=== PATIENT | female | born 1990 | race Caucasian/White ===

== ENCOUNTER → 2016-04-17 | Day surgery (SDC) | payer OTHER ==
[2016-03-30 09:02] VITALS: Ht 165.1 cm; Wt 116.4 kg
--- NOTE | 2016-04-02 12:24 | PAT Medication Instructions ---
Service Date Apr 02, 2016. Current Home Medication List Dicyclomine Hcl (Bentyl), 20 MG PO BID Furosemide (Lasix), 20 MG PO QAM Ranitidine (Zantac), 150 MG PO BID Venlafaxine Hcl (Effexor Extended Rel), 150 MG PO QAM Medication Instructions For Your Scheduled Surgery - Hold the following medications the morning of surgery: Furosemide (Lasix), 20 MG PO QAM Dicyclomine Hcl (Bentyl), 20 MG PO BID - Take the following medications the morning of surgery with a sip of water: Venlafaxine Hcl (Effexor Extended Rel), 150 MG PO QAM Ranitidine (Zantac), 150 MG PO BID - Take the following medications as scheduled the night before surgery: Ranitidine (Zantac), 150 MG PO BID Dicyclomine Hcl (Bentyl), 20 MG PO BID If you have any questions please call us at [phone] or [phone] ( [place]) or [phone]
[~2016-04-17] VITALS: Ht 165.1 cm; Wt 116.4 kg
[~2016-04-17] MED LIST: ATROPINE SULFATE 0.1 MG/ML 5ML SYR IV PRN; BUPIVACAINE 0.5 % 5 MG/1 ML MPF 30ML VIAL ONE; CEFAZOLIN 2000 MG/60 ML D5W IV SCH; DEXAMETHASONE SOD INJ 4 MG/ML VIAL ONE; DICY20TA35 PO; EpHEDrine SULFATE INJ 50 MG/ML AMP IV PRN; EpINEphrine INJ 1MG/ML AMP 1 MG/ML AMP ONE; FENTANYL CITRATE INJ 50 MCG/1 ML 2 ML VIAL IV PRN; FENTANYL CITRATE INJ 50 MCG/1 ML 2 ML VIAL ONE; FURO-85 PO; HYDR-5688 PO; HYDROmorphone INJ 1 MG/ML SYR IV PRN; KETOROLAC TROMETHAMINE 30 MG/ML VIAL ONE; LACTATED RINGER'S 1000ML 1,000 ML IV SCH; LIDOCAINE HCL 2% 2 ML VIAL (20MG/ML) ONE; MIDAZOLAM HCL 1 MG/ML 2ML VIAL ONE; ONDANSETRON INJ 2 MG/ML 2 ML VIAL IV PRN; ONDANSETRON INJ 2 MG/ML 2 ML VIAL ONE; OXYCODONE/ACETAMINOPHEN 5-325 TAB PO PRN; PROPOFOL IV EMULSION 10 MG/ML 20 ML VIAL IV ONE; ROPIVACAINE 0.5% 5 MG/ML 30 ML VIAL ONE; SODIUM CHLORIDE 0.9% 1000ML 1,000 ML IV SCH; VENL150C56 PO; ZNTT/150 PO
--- NOTE | 2016-04-17 07:13 | History & Physical Bridge - [place] ---
H&P Re-Evaluation Bridge Note: I have examined the patient, reviewed the History & Physical and in the interval since the performance of the History & Physical I have noted the following changes of clinical significance: No changes noted
--- NOTE | 2016-04-17 08:15 | [facility] Post Operative Brief Note ---
Immediate Operative Summary Operative Date Apr 17, 2016. Pre-Operative Diagnosis Left Knee Medial Meniscus Tear Post-Operative Diagnosis same Procedure(s) Performed Left Knee Arthroscopy, Partial Medial Meniscectomy Surgeon Dr. Crystal Olsen Ski Maker Surgeon(s) Bennett Prieto PA-C Estimated Blood Loss 0 Findings BUCKET HANDLE TEAR MEDIAL MENISCUS Specimens none Anesthesia LMA Complication(s) None Disposition Recovery Room / PACU
--- NOTE | 2016-04-17 08:29 | Discharge Instructions-SurgCtr ---
Discharge Instructions Visit Reason for Visit: Left Knee Medial Meniscus Tear Discharge Discharge Diagnosis / Problem: SAME ABOVE Discharge Goals Goal(s): Decrease discomfort, Improve function Medications Stopped Medications Name(s): Pt. was told only to take Effexor & Zantac this a.m.. Activity Recommendations Activity Limitations: per Instructions/Follow-up section Exercise/Sports Limitations: gradually increase as tolerated Weightbearing Status: Left weightbearing (as tolerated) Anesthesia . Post Anesthesia Instructions: If you have had General Anesthesia or IV Sedation: * Do not drive today. * Resume driving when surgeon permits. * Do not make important decisions or sign legal documents today. * Call surgeon for: 1. Temperature elevations greater than 101 degrees F. 2. Uncontrollable pain. 3. Excessive bleeding. 4. Persistent nausea and vomiting. 5. Medication intolerance (nausea, vomiting or rash). * For nausea and vomiting use only clear liquids such as: tea, soda, bouillon until nausea subsides, then gradually increase diet as tolerated. * If you have any concerns or questions, call your surgeon's office. If physician is unavailable and it is an emergency, call 911 or go to the nearest emergency room. . Instructions / Follow-Up Instructions / Follow-Up MEDICATIONS: * Resume previous medications unless instructed otherwise by your surgeon. * Always take pain medication on a full stomach or with food to avoid upset stomach. * Do not drink alcohol or drive while taking narcotics. * Ibuprofen or Tylenol may be taken if narcotic not needed. SPECIAL CARE INSTRUCTIONS: __ None _X_ Keep extremity elevated and iced x 48 hours; apply ice 20-30 minutes 8-10 times/day. May remove at night. __ Crutches __ May discard when able __ Brace/Post-op shoe __ 24 hrs/day __ Remove at night _X_ Dressing __ Maintain until seen in office, may shower with plastic over site _X_ Remove dressings in 24-48 hours and then may shower _X_ Cover incisions with band-aids after showering __ Do not remove steri-strips TAKE 325MG ASPIRIN DAILY UNTIL SEEN IN THE OFFICE IN 10-14 DAYS POST OP Call physician if chills or temperature rises above 102 degrees or pain unrelieved by prescribed pain medications. Office [phone] Diet Recommendations Home Diet: resume previous diet Procedures Procedures Performed: Left Knee Arthroscopy, Partial Medial Meniscectomy Pending Studies Studies pending at discharge: no Medical Emergencies . Who to Call and When: Medical Emergencies: If at any time you feel your situation is an emergency, please call 911 immediately. . Non-Emergent Contact Non-Emergency issues call your: Primary Care Provider . . "Provider Documentation" section prepared by Bennett Prieto.
--- NOTE | 2016-04-17 08:46 | OPERATIVE REPORT ---
DATE OF OPERATION: 04/17/2016 PREOPERATIVE DIAGNOSIS: Displaced bucket handle tear medial meniscus, left knee. POSTOPERATIVE DIAGNOSIS: Same. PROCEDURE: Left knee arthroscopy, partial medial meniscectomy. SURGEON: Dr. Olsen. ATHLETIC TURF WORKER: Bennett Prieto PA-C. ANESTHESIOLOGIST: Dr. Warren. ANESTHESIA: LMA. DRAINS: None. COMPLICATIONS: None. CONDITION: The patient tolerated the procedure well and returned to the recovery room in apparent satisfactory condition. INDICATIONS FOR SURGERY: Josey is a 26-year-old female who has been suffering a displaced bucket handle tear of the medial meniscus left knee. Went over treatment options and elected to go ahead and proceed with surgery. Procedure, expected outcomes and side effects, and risks were all explained in detail. We briefly talked about meniscal repair we felt that would probably it would be a possibility but most likely end up with a partial meniscectomy. PROCEDURE: The patient was taken to the OR at which time she was placed supine on the operating table and put to sleep by the anesthesia department. She had an extremely hypermobile leg. She hyperextended about 5 degrees. She had full range of motion. Wagner test was negative, but it was interesting how much recurvatum she had in the knee itself. The knee then was prepped and draped in usual sterile fashion, arthroscopic examination was begun with anteromedial and anterolateral portals with a tourniquet placed up to 325 mmHg. She had a very large size leg but ligamentous nash it was stable. Immediately we found a displaced bucket handle tear medial meniscus. We reduced it back into position. We then detached it posteriorly and then anteriorly we removed the fragment and a picture of it. We then used a curved torpedo shaver to trim back the remnant of the meniscus. Articular surface had a little scuffing in one area of it. The remaining part of the medial compartment was fine. The ACL, lateral compartment and patellofemoral joint was inspected. We found a lot of synovitis in the anterior aspect of the patellofemoral joint which was shaved out. The articular surfaces looked good. The knee then was copiously irrigated. All cannulas were removed. Portals were closed with 4-0 nylon sutures. 30 mL of ropivacaine, 10 mg of Toradol, and 1 mL of epinephrine was placed in the knee joint. Placed a sterile dressing of Xeroform, 4 x 4, ABD, Sof-Rol, and John bandage and returned back to recovery room in apparent satisfactory condition. Postoperatively, we are going to have her take 1 aspirin a day to prevent DVT and will start immediate range of motion and physical therapy. SURGICAL FINDINGS: Included a displaced bucket handle tear of the medial meniscus. I attest to the content of the Intraoperative Record and any orders documented therein. Any exceptio ns are noted below.
[2016-04-17 09:08] VITALS: TEMP 36.5
--- NOTE | 2016-04-17 09:17 | Anesthesiology Progress Note ---
Anesthesia Post Op Note Date & Time Apr 17, 2016 at 09:16 Vital Signs Pain Intensity: 0 Vital Signs Past 12 Hours Date Time Temp Pulse Resp B/P Pulse Ox O2 Delivery O2 Flow Rate FiO2 04/17/16 08:59 90 18 04/17/16 08:59 89 18 104/49 99 04/17/16 08:56 36.3 90 12 111/55 100 Room Air 04/17/16 08:54 92 5 04/17/16 08:54 91 5 100 04/17/16 08:53 111/55 04/17/16 08:52 92 5 100 04/17/16 08:52 91 5 04/17/16 08:48 103/62 04/17/16 08:47 106 9 100 04/17/16 08:47 104 9 04/17/16 08:43 111/52 04/17/16 08:42 101 17 100 04/17/16 08:42 101 17 04/17/16 08:38 103/52 04/17/16 08:37 107 20 04/17/16 08:37 108 20 100 04/17/16 08:36 117 20 100 04/17/16 08:36 116 20 04/17/16 08:33 102/48 04/17/16 08:32 103/43 04/17/16 08:31 91 6 04/17/16 08:31 91 6 100 04/17/16 08:29 103/43 04/17/16 08:26 88 9 100 04/17/16 08:26 89 9 04/17/16 08:26 36.3 89 16 107/70 95 Diffusion Mask 6 04/17/16 06:58 36.9 107 20 137/86 99 Room Air Notes Mental Status: alert / awake / arousable, participated in evaluation Pt Amnestic to Procedure: Yes Nausea / Vomiting: adequately controlled Pain: adequately controlled Airway Patency, RR, SpO2: stable & adequate BP & HR: stable & adequate Hydration State: stable & adequate Anesthetic Complications: no major complications apparent
[2016-04-17 09:50] VITALS: BP 138/86; PULSE 93; O2SAT 100
== END | disposition home or self-care (01) ==
LOC: X.SURG 06:40
PROVIDERS: ATTEND Orthopaedic Surgery
DX: M23.204 Derangement of unspecified medial meniscus due to old tear or injury, left knee (principal); K58.9 Irritable bowel syndrome, unspecified; K21.9 Gastro-esophageal reflux disease without esophagitis; Z98.890 Other specified postprocedural states